=== PATIENT | male | born 1975 | race Hispanic/Latino ===

== ENCOUNTER 2020-09-13 10:32 | Day surgery (SDC) | payer OTHER ==
[2020-09-13] MEDS ORDERED: CEFAZOLIN/SWI 1gm 1 GM/10 ML SYR ONE (11:06)
[2020-09-13] MEDS ORDERED: Ringers Lactate 1,000 ML IV ONE (11:06)
[2020-09-13] MEDS ORDERED: FENTANYL CITR 100 MCG/2 ML ONE (11:10)
[2020-09-13] MEDS ORDERED: MIDAZOLAM HCL 2 MG/2 ML INJ ONE (11:10)
[2020-09-13] MEDS ORDERED: propofoL 200 MG/20 ML VIAL IV ONE (11:10)
[2020-09-13] MEDS ORDERED: dexAMETHasone 10 MG/ML VIAL ONE (11:11)
[2020-09-13] MEDS ORDERED: LIDOCAINE 2% MPF 5 ML VIAL ONE (11:11)
[2020-09-13] MEDS ORDERED: ONDANSETRON 4 MG/2 ML VIAL ONE (11:11)
[2020-09-13] MEDS ORDERED: KETOROLAC 30 MG/ML INJ ONE (11:11)
[2020-09-13] MEDS ORDERED: CODEINE 30MG/APAP 300MG TAB ONE (13:34)
[2020-09-13 13:48] VITALS: BP 114/81; TEMP 97.5; O2SAT 99
--- NOTE | 2020-09-13 22:39 | OP ---
Surgeon: Kar Bustamante MD Preoperative Diagnosis: Right ring finger trigger. Postoperative Diagnosis: Right ring finger trigger. Procedure Performed: A1 catie release, right ring finger. Anesthesia: General. Procedure In Detail: After satisfactory induction of general anesthesia, left hand was prepped with DuraPrep. Dry sterile drapes were applied in the usual manner. Arm was elevated, exsanguinated with an Esmarch, tourniquet inflated to 250 mmHg. Hand was placed on a Roto Lock table. Incision was ma de 1.1 cm in length over the A1 catie region. Dissection was proceeded down with tenotomy scissors. Ragnell retractor was placed. A 15 blade was used to incise the A1 catie. The tendons were place d through range of motion of locking. Then the tourniquet was released. Electrocautery was used for hemostasis. Wound was closed with 4-0 Prolene vertical mattress and simple sutures and dressed with Xeroform, 2 inch Carlos. Prior to the closure, 2 cc of xylocaine 1% with epi was placed. JUAN/ELIEL Voice ID: [id number] Report ID: [id number]
== END 2020-09-13 13:43 | disposition home or self-care (01) ==
LOC: OR 10:32
PROVIDERS: ATTEND Specialist
PROC: 0LN70ZZ Release Right Hand Tendon, Open Approach (ICD-10-PCS; principal; 2020-09-13 12:00)
DX: M65.341 Trigger finger, right ring finger (principal); Z20.822 Contact with and (suspected) exposure to COVID-19
CPT/HCPCS: 26055; U0003; J2704; J2250; J3010; J1100; J0690; J7120; J2405